=== PATIENT | female | born 1960 | race Caucasian/White ===

== ENCOUNTER → 2022-11-06 | Outpatient (CLI) | payer OTHER, SELFPAY ==
--- NOTE | 2022-11-06 09:38 | MRI_ITS ---
INDICATION: MRV PELVIS : ASSESS VEINS FOR PELVIC CONGESTION SYNDROME EXAMINATION: MRA - MRA Pelvis WO and/or W Contrast TECHNIQUE: Routine abdominal MR angiographic protocol was performed. 3D reconstructions were reviewed. IV Contrast Dosage and Agent: COMPARISON: None. FINDINGS: AORTA: No occlusion or significant stenosis. RENAL ARTERIES: No occlusion or significant stenosis. INFERIOR MESENTERIC ARTERY: No occlusion or significant stenosis. ILIAC ARTERIES: No occlusion or significant stenosis. Pelvic vasculature is normal without evidence of pelvic congestion syndrome. Atrophic uterus versus hysterectomy. MRI/MRV Pelvis WITH & Without Cont IMPRESSION: Negative MRA abdomen. Negative MRV abdomen. Hysterectomy versus atrophic uterus. If there is still clinical concern regarding pelvic congestion syndrome pelvic ultrasound advised if clinically warranted. Electronically Signed: Boone Hayden MD, LUISANA at 10:07 EDT ,
[2022-11-06 10:23] LABS: CREATININE FINGERSTICK < 0.9 mg/dL (0.55-1.02); EGFR FINGERSTICK > 60.0000 mL/min (>60)
== END | disposition home or self-care (01) ==
PROVIDERS: Referring Provider Surgery; Visit Provider Surgery
DX: I87.8 Other specified disorders of veins (principal)
CPT/HCPCS: 72198; A9575; A4216; C8920